=== PATIENT | male | born 1960 | race Caucasian/White ===

== ENCOUNTER 2022-04-04 11:11 | Observation (INO) ==
[2022-04-04 11:28] VITALS: BMI 25.8
--- NOTE | 2022-04-04 11:45 | DR.GENAD ---
HPI Time Seen Time Seen by Provider: 04/04/22 11:27 PCP Primary Care Physician: MAR HPI Comment HPI Comment: A 61 y/o male presenting with skeletal pain in anterior torso. He has been having dizzy spells and unsteady gait. He states that he had fallen 3 to 4 times in past couple of weeks. He denies SOB or c/p. Complaint/Symptoms Chief Complaint:: PT. C/O FREQUENT FALLS AND DIZZINESS. PT. STATES HE HAS HAD 4 FALLS WITHIN THE LAST 2 WEEKS. PT. C/O RIB PAIN TO RIGHT SIDE AND PAIN TO CHEST WALL. PT. HAS AN UNSTEADY GAIT. PCP'S OFFICE CALLS AND STATES PT. HAS BEEN OUT OF HIS HYDROCODONE FOR A FEW DAYS AND HAS ALSO HAD DECREASED ORAL INTAKE. PT. STATES HE VOMITED PRIOR TO ARRIVAL AT PCP'S OFFICE. COVID-19 Coronavirus risk:travel/contact w/high risk person: No Has patient experienced Coronavirus symptoms: No Nurses notes reviewed Nurses Notes Review: Yes Source History Provided: Patient and Family Member Mode of Arrival Mode of Arrival: Wheelchair Timing Onset of Chief Complaint: 03/21/22 Came on: Gradually Duration Duration: Intermittent PMH PMH Past Medical History: Yes Past Medical History: Anxiety and Hypertension Past Medical History Comment: CHRONIC BACK PAIN Past Surgical History: Yes Surgical History: Other Past Surgical History Comment: BACK, RIGHT SHOULDER Family History History of Family Medical Conditions: Yes Family Medical History: Hypertension Social History Does patient currently use any type of tobacco product: No Have you used tobacco products in the last 12 months: No Type of Tobacco Use: None Does any household member use tobacco: No Alcohol Use: DAILY Do you use any recreational Drugs:: No Lives With: Alone Lives Where: Home Travel Risk Coronavirus risk:travel/contact w/high risk person: No Has patient experienced Coronavirus symptoms: No Infectious screening In the last 2 months have you had wt loss of >10#?: NO Have you had fever, night sweats or hemotysis?: No Have you traveled outside the country in the last 6 months?: No Isolation: Standard ROS Review of Systems Constitutional: See HPI and Other (falls) Eyes: No Symptoms Reported ENTM: No Symptoms Reported Respiratoy: No Symptoms Reported Cardiovascular: No Symptoms Reported Gastrointestinal/Abdominal: No Symptoms Reported Genitourinary: No Symptoms Reported Neurological: No Symptoms Reported Musculoskeletal: Chest wall Integumentary: No Symptoms Reported Hematologic/Lymphatic: No Symptoms Reported Endocrine: No Symptoms Reported Psychiatric: No Symptoms Reported PE Vital Signs Vitals: Temperature 97.9 F Pulse Rate 111 Respiratory Rate 18 Blood Pressure 152/83 O2 Sat by Pulse Oximetry 98 General Limitations: No Limitations General Appearance: Alert and In No Apparent Distress Head Head Exam: Normal Inspection, Atraumatic and Normocephalic Eyes Eye exam: Normal Appearance and EOMI ENT ENT Exam: Normal Exam, Normal Oropharynx, Normal External Ear Exam, Mucous Membranes Moist and TM's Normal Bilaterally Neck Neck Exam: Normal Inspection, Full ROM and Trachea Midline Chest Chest Inspection: Normal Inspection, Symmetric Chest Wall Rise and Tenderness (mid sternum) Respiratory Respiratory Exam: Normal Lung Sounds Bilat Cardiovascular Cardiovascular Exam: Regular Rate, Normal Rhythm, Normal Heart Sounds, +S1 and +S2 Abdominal Exam Abdominal Exam: Normal Inspection, Normal Bowel Sounds and Soft Extremities Extremities Exam: Normal Inspection and Full ROM Back Back Exam: Normal Inspection and Full ROM Neurologic Neurological Exam: Alert and Oriented X3 Psychiatric Psychiatric Exam: Normal Affect and Normal Mood Skin Skin Exam: Intact and Other (light bluish bruise on Lt. patella.) COURSE Treatment Treatment: The presentation and findings were discussed with Dr. Dumont. Dr. Dumont agrees to pt. being placed in observation status. Reevaluation 1st: Improved 2nd: Resolved Education/Counseling Education/Counseling: Patient, Family, Education and Counseling Educated On: Treatment, Diagnosis, Prognosis and Needs for Follow Up Education Comments: Name: Juleitte SHIPMAN#: [id number]: [id number] : 1960Sex: MLo ROR Labs Reviewed Result Diagrams: 04/04/22 11:46 04/04/22 11:46 Laboratory: WBC 6.0 X10^3/uL (3.6-10.0) 04/04/22 11:46 RBC 4.69 X10^6/uL (4.7-6.0) L 04/04/22 11:46 Hgb 15.8 g/dL (13.5-18.0) 04/04/22 11:46 Hct 46.1 % (42.0-54.0) 04/04/22 11:46 MCV 98.4 fL (80.0-100.0) 04/04/22 11:46 MCH 33.8 pg (27.0-34.0) 04/04/22 11:46 MCHC 34.3 g/dL (33.0-35.0) 04/04/22 11:46 RDW 14.2 % (11.6-16.5) 04/04/22 11:46 Plt Count 224 X10^3/uL (150.0-450.0) 04/04/22 11:46 MPV 7.1 fL (7.4-11.0) L 04/04/22 11:46 Neut % (Auto) 81.7 % (42.0-75.0) H 04/04/22 11:46 Lymph % (Auto) 8.9 % (21.0-51.0) L 04/04/22 11:46 [place] % (Auto) 8.6 % (0.0-13.0) 04/04/22 11:46 Eos % (Auto) 0.0 % (0.9-2.9) L 04/04/22 11:46 Baso % (Auto) 0.8 % (0.2-1.0) 04/04/22 11:46 Neut # (Auto) 4.9 x10^3/uL (2.2-4.8) H 04/04/22 11:46 Lymph # (Auto) 0.5 X10^3/uL (1.3-2.9) L 04/04/22 11:46 [place] # (Auto) 0.5 x10^3/uL (0.3-0.8) 04/04/22 11:46 Eos # (Auto) 0.0 x10^3/uL (0.0-0.2) 04/04/22 11:46 Baso # (Auto) 0.0 X10^3/uL (0.0-0.1) 04/04/22 11:46 Absolute Nucleated RBC 0.1 /100WBC 04/04/22 11:46 Sodium 129 mmol/L (136-145) L 04/04/22 11:46 Corrected Sodium TNP 04/04/22 11:46 Potassium 4.1 mmol/L (3.5-5.1) 04/04/22 11:46 Chloride 90 mmol/L (98-107) L 04/04/22 11:46 Carbon Dioxide 24.3 mmol/L (21-32) 04/04/22 11:46 BUN 6 mg/dL (7-18) L 04/04/22 11:46 Creatinine 1.02 mg/dL (0.70-1.30) 04/04/22 11:46 Est GFR (MDRD) Af Amer > 60 (>60) 04/04/22 11:46 Est GFR (MDRD) Non-Af > 60 (>60) 04/04/22 11:46 Glucose 105 mg/dL (65-99) H 04/04/22 11:46 Calcium 9.7 mg/dL (8.5-10.1) 04/04/22 11:46 Corrected Calcium TNP 04/04/22 11:46 Total Bilirubin 1.30 mg/dL (0.2-1.0) H 04/04/22 11:46 AST 83 Units/L (15-37) H 04/04/22 11:46 ALT 44 Units/L (12-78) 04/04/22 11:46 Alkaline Phosphatase 90 Units/L (46-116) 04/04/22 11:46 Total Protein 8.5 g/dL (6.4-8.2) H 04/04/22 11:46 Albumin 4.5 g/dL (3.4-5.0) 04/04/22 11:46 Globulin 4.0 g/dL (2.5-4.5) 04/04/22 11:46 Albumin/Globulin Ratio 1.1 Ratio (1.1-2.1) 04/04/22 11:46 Opioid Opioid Risk Tool Age (Caden box if 16-45): No History of Preadolescent Sexual Abuse: No Total: 0 Total Score Risk Category: Low Risk Copyright: [facility] predicting aberrant behaviors Diagnosis Discharge Problem: Falls frequently, Hyponatremia, Alcoholism Multiple rib fractures Qualifiers: Encounter type: initial encounter Fracture type: closed Laterality: right Qualified Code(s): S22.41XA - Multiple fractures of ribs, right side, initial encounter for closed fracture Instructions Instructions: Rib Fracture, [id number] Forms: Precautions for COVID19 [facility] Social Distancing ADDITIONAL NOTES Additional Notes Additional Notes: Name: Juliette SHIPMAN#: [id number]: [id number] : 1960Sex: MLocation: ER Order Number(s): [id number](s):CHEST W/O CON Ordering Physician: CARLOS STROUD Primary Care: Carson Freedom Dumont Service Date: 04/04/22 Service Time: 1206 HISTORY Fall, rib pain STUDY CT chest without contrast Technique: Axial noncontrast images with coronal and sagittal reformats. Dose reduction procedures were used with mA/kv adjusted for body size. THIS EXAMINATION IS LIMITED DUE TO THE LACK OF INTRAVENOUS CONTRAST. The examination was performed in this manner at the sole discretion of the ordering caregiver. COMPARISON None FINDINGS Examinat ion of the mediastinum demonstrated no evidence for mediastinal mass, enlarged mediastinal or enlarged hilar adenopathy. Coronary artery calcifications are present. The thoracic aorta is normal in caliber. Evaluation for injury is not possible due to the lack of intravenous contrast. No pleural effusions are identified. No acute traumatic thoracic spine abnormality is identified. The clavicles, sternum, scapulae and left ribs are intact. There are fractures of the right lateral 5th 6th and 7th ribs. Those portions of the upper abdominal organs visualized were within normal limits to the limitations of an unenhanced examination. Examination of the lung bell demonstrated no evidence for pulmonary contusion or pneumothorax. No nodules, infiltrates, or masses are identified. IMPRESSION Limited examination for the reasons noted above Nondisplaced fractures of the right lateral 5th 6th and 7th ribs Lungs clear Electronically signed by: ELDA BLANCO (April 04, 2022 12:32:24) Report Electronically signed: 04/04/22 1234 CC: Carlos Stroud
[2022-04-04 12:01] LABS: BASOPHILS % (AUTO) 0.8 % (0.2-1.0); HEMATOCRIT 46.1 % (42.0-54.0); HEMOGLOBIN 15.8 g/dL (13.5-18.0); LYMPHOCYTES # (AUTO) 0.5 X10^3/uL (1.3-2.9); LYMPHOCYTES % (AUTO) 8.9 % (21.0-51.0); MEAN CORPUSCULAR HEMOGLOBIN 33.8 pg (27.0-34.0); MEAN CORPUSCULAR HGB CONC 34.3 g/dL (33.0-35.0); MEAN CORPUSCULAR VOLUME 98.4 fL (80.0-100.0); MEAN PLATELET VOLUME 7.1 fL (7.4-11.0); MONOCYTES # (AUTO) 0.5 x10^3/uL (0.3-0.8); MONOCYTES % (AUTO) 8.6 % (0.0-13.0); NEUTROPHILS # (AUTO) 4.9 x10^3/uL (2.2-4.8); NEUTROPHILS % (AUTO) 81.7 % (42.0-75.0); RED BLOOD COUNT 4.69 X10^6/uL (4.7-6.0); RED CELL DISTRIBUTION WIDTH 14.2 % (11.6-16.5)
[2022-04-04 12:11] LABS: ALANINE AMINOTRANSFERASE 44 Units/L (12-78); ALBUMIN 4.5 g/dL (3.4-5.0); ALKALINE PHOSPHATASE 90 Units/L (46-116); ASPARTATE AMINO TRANSFERASE 83 Units/L (15-37); BLOOD UREA NITROGEN 6 mg/dL (7-18); CALCIUM 9.7 mg/dL (8.5-10.1); CARBON DIOXIDE 24.3 mmol/L (21-32); CHLORIDE 90 mmol/L (98-107); CREATININE 1.02 mg/dL (0.70-1.30); SODIUM 129 mmol/L (136-145); TOTAL PROTEIN 8.5 g/dL (6.4-8.2); eGFR NON BLACK RACES > 60 (>60)
--- NOTE | 2022-04-04 12:25 | CT ---
HISTORYFall, head injury, dizzinessSTUDYCT head without contrastTechnique: Axial noncontrast images with coronal and sagittal reformats. Dose reduction procedures were used with mA/kv adjusted for body size.COMPARISONNoneFINDINGSThe ventricles, cortical sulci, and other CSF spaces are enlarged consistent with generalized atrophy. There is slight decreased attenuation in the periventricular white matter suggestive of small vessel vascular disease. There are no focal areas of abnormal attenuation to suggest recent or remote CVA, hemorrhage, contusion, mass lesion, or extra-axial fluid collection. The visualized sinuses are clear. The calvarium is intact.IMPRESSIONNo definite acute intracranial abnormalityGeneralized atrophyMild small vessel diseaseElectronically signed by: ELDA BLANCO (April 04, 2022 12:22:33)
--- NOTE | 2022-04-04 12:34 | CT ---
HISTORYFall, rib painSTUDYCT chest without contrastTechnique: Axial noncontrast images with coronal and sagittal reformats. Dose reduction procedures were used with mA/kv adjusted for body size. THIS EXAMINATION IS LIMITED DUE TO THE LACK OF INTRAVENOUS CONTRAST. The examination was performed in this manner at the sole discretion of the ordering caregiver.COMPARISONNoneFINDINGSExaminat ion of the mediastinum demonstrated no evidence for mediastinal mass, enlarged mediastinal or enlarged hilar adenopathy. Coronary artery calcifications are present. The thoracic aorta is normal in caliber. Evaluation for injury is not possible due to the lack of intravenous contrast. No pleural effusions are identified. No acute traumatic thoracic spine abnormality is identified. The clavicles, sternum, scapulae and left ribs are intact. There are fractures of the right lateral 5th 6th and 7th ribs. Those portions of the upper abdominal organs visualized were within normal limits to the limitations of an unenhanced examination. Examination of the lung bell demonstrated no evidence for pulmonary contusion or pneumothorax. No nodules, infiltrates, or masses are identified.IMPRESSIONLimited examination for the reasons noted aboveNondisplaced fractures of the right lateral 5th 6th and 7th ribsLungs clearElectronically signed by: ELDA BLANCO (April 04, 2022 12:32:24)
[2022-04-04] MEDS ORDERED: KAOPECTATE (NEW FORMULA) PO PRN (13:20)
[2022-04-04] MEDS ORDERED: MOTRIN TAB 800 MG PO PRN (13:20)
[2022-04-04] MEDS ORDERED: MILK OF MAGNESIA PO PRN (13:20)
[2022-04-04] MEDS ORDERED: LIBRIUM PO PRN (13:20)
[2022-04-04] MEDS ORDERED: MORPHINE SULFATE INJ 2 MG INJ IVP ONE (13:21)
[2022-04-04] MEDS ORDERED: NS 1,000 ML IV 1,000 ML ONE (13:22)
[2022-04-04] MEDS ORDERED: MORPHINE SULFATE INJ 2 MG INJ ONE (13:22)
[2022-04-04] MEDS ORDERED: ZOFRAN INJ 4 MG VIAL ONE (13:28)
[2022-04-04] MEDS: NS 1,000 ML IV 1,000 ML IV SCH ×3 (13:28→23:51)
[2022-04-04] MEDS ORDERED: ZOFRAN INJ 4 MG VIAL IVP ONE (13:47)
[2022-04-04 13:51] LABS: BILIRUBIN,URINE 1+ (NEGATIVE); BLOOD/HEMOGLOBIN,URINE 1+ (NEGATIVE); GLUCOSE, URINE NEGATIVE (NEGATIVE); KETONES,URINE 3+ (NEGATIVE); LEUKOCYTE ESTERASE ,URINE 1+ (NEGATIVE); NITRITES,URINE NEGATIVE (NEGATIVE); PROTEIN,URINE 2+ (NEGATIVE); UROBILINOGEN,URINE 2+ (NORMAL)
[2022-04-04 13:52] LABS: APPEARANCE,URINE CLEAR (CLEAR); COLOR,URINE DARK YELLOW (YELLOW)
[2022-04-04 13:54] LABS: BACTERIA,URINE TRACE /HPF (NEGATIVE); SQUAMOUS EPITHELIAL CELL,UR RARE /HPF (NEGATIVE)
[2022-04-04] MEDS ORDERED: NORCO 10/325 TAB PO PRN (13:59)
[2022-04-04] MEDS: NS 1,000 ML IV 1,000 ML with MAGNESIUM SULFATE 50% INJ VIAL 1 G, MVI INJ (ADULT) 10 ML IV SCH ×3 (14:00)
[2022-04-04] MEDS: TORADOL 30 MG VIAL IVP SCH ×2 (15:35→21:06)
[2022-04-04] MEDS: PHENOBARBITAL TAB 30 MG (32.4MG) PO SCH ×2 (17:21→21:07)
[2022-04-04] MEDS: AMBIEN PO SCH (21:08)
[2022-04-04] MEDS: LOPRESSOR TAB 25 MG PO SCH (21:08)
[2022-04-04] MEDS: MAALOX or MYLANTA PO PRN (21:21)
[2022-04-05] MEDS: TORADOL 30 MG VIAL IVP SCH ×4 (03:53→20:50)
[2022-04-05] MEDS: NS 1,000 ML IV 1,000 ML IV SCH ×3 (04:00→17:12)
[2022-04-05 06:10] LABS: BASOPHILS % (AUTO) 0.6 % (0.2-1.0); LYMPHOCYTES # (AUTO) 0.6 X10^3/uL (1.3-2.9); MEAN CORPUSCULAR VOLUME 98.3 fL (80.0-100.0); MEAN PLATELET VOLUME 7.3 fL (7.4-11.0); MONOCYTES # (AUTO) 0.6 x10^3/uL (0.3-0.8); NEUTROPHILS % (AUTO) 67.7 % (42.0-75.0)
[2022-04-05 06:23] LABS: EOSINOPHILS % (AUTO) 1.1 % (0.9-2.9); HEMOGLOBIN 13.7 g/dL (13.5-18.0); LYMPHOCYTES % (AUTO) 14.9 % (21.0-51.0); MEAN CORPUSCULAR HEMOGLOBIN 34.4 pg (27.0-34.0); MONOCYTES % (AUTO) 15.7 % (0.0-13.0); NEUTROPHILS # (AUTO) 2.7 x10^3/uL (2.2-4.8); RED BLOOD COUNT 3.97 X10^6/uL (4.7-6.0); WHITE BLOOD COUNT 3.9 X10^3/uL (3.6-10.0)
[2022-04-05 06:29] LABS: ALANINE AMINOTRANSFERASE 29 Units/L (12-78); ALBUMIN 3.6 g/dL (3.4-5.0); ALKALINE PHOSPHATASE 76 Units/L (46-116); ASPARTATE AMINO TRANSFERASE 43 Units/L (15-37); BLOOD UREA NITROGEN 9 mg/dL (7-18); CALCIUM 8.5 mg/dL (8.5-10.1); CARBON DIOXIDE 27.6 mmol/L (21-32); CHLORIDE 93 mmol/L (98-107); COR NA(FOR HYPERGLY) 130 mmol/L (136-145); SODIUM 130 mmol/L (136-145); TOTAL PROTEIN 6.7 g/dL (6.4-8.2); eGFR NON BLACK RACES > 60 (>60)
[2022-04-05] MEDS ORDERED: K-RIDER 10 MEQ/NS 100 ML 10 MEQ/100 ML BAG IV PRN (07:07)
[2022-04-05] MEDS ORDERED: POTASSIUM CHLORIDE LIQ 20 MEQ UDC PO PRN (07:07)
[2022-04-05] MEDS ORDERED: POTASSIUM CHL 60 MEQ/NS 0.45% 500 ML IV PRN (07:07)
[2022-04-05] MEDS ORDERED: MICRO K EXTEN CAP 10 MEQ PO PRN (07:07)
[2022-04-05] MEDS ORDERED: KLOR-CON PO PRN (07:07)
[2022-04-05] MEDS ORDERED: POTASSIUM CHL 40 MEQ/NS 0.45% 500 ML IV PRN (07:07)
[2022-04-05] MEDS ORDERED: K-DUR TAB 20 MEQ PO PRN (07:07)
--- NOTE | 2022-04-05 07:20 | RAD ---
HISTORYSOBSTUDYCHEST, 1 VIEWCOMPARISONCT chest from 04/04/2022.TECHNIQUEAP view of the chestFINDINGSThe cardiac and mediastinal contours are within normal limits. The lungs are clear without focal consolidation or segmental collapse. No pleural effusion or pneumothorax. Right 5th through 7th rib fractures not well visualized.IMPRESSIONNo acute pulmonary process.Electronically signed by: Domingo Gill (April 05, 2022 07:18:35)
[2022-04-05] MEDS: MOBIC TAB 15 MG PO SCH (08:16)
[2022-04-05] MEDS: LOPRESSOR TAB 25 MG PO SCH ×2 (08:16→20:51)
[2022-04-05] MEDS: COZAAR PO SCH (08:16)
[2022-04-05] MEDS: PHENOBARBITAL TAB 30 MG (32.4MG) PO SCH ×4 (08:17→20:51)
[2022-04-05] MEDS: PriLOSEC PO SCH (08:17)
[2022-04-05] MEDS: THIAMINE HCL INJ IVP SCH (08:25)
[2022-04-05] MEDS ORDERED: MAGNESIUM SULFATE 1 GRAM/100 mL PREMIX 1 G/100 ML BAG IV ONE (08:33)
--- NOTE | 2022-04-05 09:45 | DR.H&P ---
H&P - History & Physical for Day of: H&P Date: 04/04/22 - Chief Complaint Chief Complaint: DIZZINESS, WEAKNESS, FALLS, RIB PAIN - History of Present Illness History of Present Illness: IS A 61 YEAR OLD PATIENT OF OURS. HE PRESENTED TO THE ER WITH COMPLAINTS OF RIGHT SIDE RIB PAIN, CHEST WALL PAIN, DIZZINESS, AND FREQUENT FALLS. PATIENT REPORTS THAT RIP PAIN STARTED AFTER FALLING TODAY. HE REPORTS HAVING 4 FALLS IN THE PAST TWO WEEKS. HE DENIES SHORTNESS OF BREATH. HE ADMITS TO DECREASED ORAL INTAKE AND VOMITING PRIOR TO ARRIVAL. PMH INCLUDES ANXIETY, HTN, CHRONIC BACK PAIN. EXAMINATION REVEALED TENDERNESS TO RIGHT SIDE LUNGS. HE DOES ADMIT TO DAILY ALCOHOL USE. ON ARRIVAL TO THE ER, VITALS WERE 97.9-126-18-99%-169/95. LABS WERE OBTAINED. WBC 6.0, RBC 4.69, HGB 15.8, HCT 46.1, SODIUM 129, POTASSIUM 4.1, CHLORIDE 90, BUN 6, CREATININE 1.02, GLUCOSE 105, CALCIUM 9.7, TOTAL BILI 1.30, AST 83, ALT 44, ALK PHOS 90, TOTAL PROTEIN 8.5. URINALYSIS REVEALED: WBC 3-5, RBC 3-5, BACTERIA TRACE, LEUKOCYTES 1+. WE WILL SET UP A URINE CULTURE. UDS POSITIVE FOR OPIATES AND BENZODIAZEPINES. HE DOES TAKE HYDROCODONE. COVID-[address] WAS OBTAINED AND REVEALED: No definite acute intracranial abnormality. Generalized atrophy. Mild small vessel disease. EKG REVEALED: SINUS TACHYCARDIA WITH HR 111. CHEST CT WAS OBTAINED AND REVEALED: Nondisplaced fractures of the right lateral 5th 6th and 7th ribs. Lungs clear. IN THE ER, HE WAS GIVEN MORPHINE 2MG IV X 1 DOSE AND ZOFRAN 4MG IV X 1 DOSE. HE WAS ADMITTED FOR FURTHER EVALUATION AND TREATMENT OF HYPONATREMIA, MULTIPLE RIB TX, AND FREQUENT FALLS. HE WAS STARTED ON A BANANA BAG, THE POTASSIUM AND MAGNESIUM PROTOCOL, THIAMINE 100MG IV DAILY, PHENOBARBITAL 30MG PO QID, MILK OF MAGNESIA 60ML PO DAILY PRN, TORADOL 30MG IV Q6H, MOTRIN 800MG PO Q8H PRN, LIBRIUM 25MG PO Q6H PRN, MAALOX 30ML PO Q4H PRN, AND HIS HOME MEDICATIONS WERE RESUMED. OTHERWISE ,WE PLAN TO FOLLOW-UP WITH AM LABS AND CONTINUE TO MONITOR. TIME SPENT ON CLINICAL ASSESSMENT, REVIEWING LABS AND IMAGING, DECISION MAKING, AND DOCUMENTATION GREATER THAN 75 MINUTES. - Past Medical History Past Medical History: Hypertension, Anxiety Additional Medical History: CHRONIC LOW BACK PAIN - Past Surgical History Surgical History: Other Additional Surgical History: BACK AND RIGHT SHOULDER SURGERY - Family History Family Medical History: Hypertension - Social History Does patient currently use any type of tobacco product: No Have you used tobacco products in the last 12 months: No Type of Tobacco Use: None Does any household member use tobacco: No Alcohol Use: DAILY Drug Use: None - Medications Home Medications: codeine Allergy (Verified 04/04/22 11:28) CONTINUE taking the following medications hydrocodone-acetaminophen 1 tab PO TID PRN 04/04/22 [History] losartan 50 mg PO DAILY 04/04/22 [History] meloxicam 15 mg PO DAILY 04/04/22 [History] metoprolol tartrate 25 mg PO BID 04/04/22 [History] nystatin 1 applic TOPICAL BID 04/04/22 [History] omeprazole 20 mg PO DAILY 04/04/22 [History] - Review of Systems Constitutional: Weakness Eyes: No Symptoms Reported ENT: No Symptoms Reported Respiratory: No Symptoms Reported Cardiovascular: Light Headedness Gastrointestinal: No Symptoms Reported Genitourinary: No Symptoms Reported Musculoskeletal: See HPI (RIGHT SIDE RIB PAIN ) Skin: No Symptoms Reported Neurological: Weakness - Physical Exam Vital Signs: Temperature 98.4 F Pulse Rate [Bilateral Radial] 78 Pulse Rate 122 Respiratory Rate 18 Blood Pressure [Right Arm] 155/87 Blood Pressure 148/99 O2 Sat by Pulse Oximetry 97 Oriented: Normal Eyes: Normal Ear: Normal Nose: Normal Throat: Normal Respiratory: Diminished Throughout Cardiovascular: Tachycardia : Normal Auscultation: Bowel Sounds: Normal Palpation: Normal Tenderness: Normal Skin: Normal Musculoskeletal: Right (RIGHT SIDE RIBS ), Tender Psychiatric: Normal Mood Description: Calm Affect: Normal Speech Pattern: Clear - Assessment/Plan (1) Hyponatremia Status: Acute Plan: ADMIT, BANANA BAG, THE POTASSIUM AND MAGNESIUM PROTOCOL, THIAMINE 100MG IV DAILY, PHENOBARBITAL 30MG PO QID, MILK OF MAGNESIA 60ML PO DAILY PRN, TORADOL 30MG IV Q6H, MOTRIN 800MG PO Q8H PRN, LIBRIUM 25MG PO Q6H PRN, MAALOX 30ML PO Q4H PRN, AND HIS HOME MEDICATIONS WERE RESUMED (2) Multiple rib fractures Qualifiers: Encounter type: initial encounter Fracture type: closed Laterality: right Qualified Code(s): S22.41XA - Multiple fractures of ribs, right side, initial encounter for closed fracture Status: Acute (3) Falls frequently Status: Acute (4) Alcoholism Status: Acute - Allergies Allergies/Adverse Reactions: Allergies Allergy/AdvReac Type Severity Reaction Status Date / Time codeine Allergy Verified 04/04/22 11:28
[2022-04-05 09:52] LABS: CKMB % 0.3 % (<4); CREATINE KINASE MB 1.9 ng/mL (0-4.0)
[2022-04-05] MEDS: MAALOX or MYLANTA PO PRN ×2 (10:29→20:50)
[2022-04-05] MEDS: NS 1,000 ML IV 1,000 ML with MAGNESIUM SULFATE 50% INJ VIAL 1 G, MVI INJ (ADULT) 10 ML IV SCH ×3 (13:59)
[2022-04-05] MEDS: AMBIEN PO SCH (20:50)
[2022-04-06] MEDS: TORADOL 30 MG VIAL IVP SCH ×2 (03:02→08:16)
[2022-04-06 06:15] LABS: BASOPHILS % (AUTO) 0.7 % (0.2-1.0); EOSINOPHILS % (AUTO) 1.6 % (0.9-2.9); HEMATOCRIT 34.9 % (42.0-54.0); LYMPHOCYTES # (AUTO) 0.6 X10^3/uL (1.3-2.9); LYMPHOCYTES % (AUTO) 21.3 % (21.0-51.0); MEAN CORPUSCULAR HEMOGLOBIN 33.8 pg (27.0-34.0); MEAN CORPUSCULAR HGB CONC 34.3 g/dL (33.0-35.0); MEAN CORPUSCULAR VOLUME 98.6 fL (80.0-100.0); MEAN PLATELET VOLUME 7.3 fL (7.4-11.0); MONOCYTES # (AUTO) 0.4 x10^3/uL (0.3-0.8); MONOCYTES % (AUTO) 13.5 % (0.0-13.0); NEUTROPHILS # (AUTO) 1.9 x10^3/uL (2.2-4.8); NEUTROPHILS % (AUTO) 62.9 % (42.0-75.0); RED BLOOD COUNT 3.54 X10^6/uL (4.7-6.0); RED CELL DISTRIBUTION WIDTH 13.8 % (11.6-16.5)
[2022-04-06] MEDS: MAALOX or MYLANTA PO PRN (06:17)
[2022-04-06 06:25] LABS: ALANINE AMINOTRANSFERASE 23 Units/L (12-78); ALBUMIN 3.2 g/dL (3.4-5.0); ALKALINE PHOSPHATASE 63 Units/L (46-116); ASPARTATE AMINO TRANSFERASE 30 Units/L (15-37); BLOOD UREA NITROGEN 4 mg/dL (7-18); CHLORIDE 99 mmol/L (98-107); COR CA(FOR HYPOALB) 8.6 mg/dL (8.5-10.1); CREATINE KINASE 305 Units/L (39-308); CREATININE 0.81 mg/dL (0.70-1.30); MAGNESIUM 1.8 mg/dL (1.7-2.9); SODIUM 133 mmol/L (136-145); eGFR NON BLACK RACES > 60 (>60)
[2022-04-06] MEDS: NS 1,000 ML IV 1,000 ML IV SCH (07:08)
--- NOTE | 2022-04-06 07:09 | RAD ---
HISTORYShortness of breathSTUDYChest AP [id number]/05/2022FINDINGSHear t size is normal. Jackelyn are normal. Lungs are hypoinflated but clear. No pleural effusion is identified. Bony thorax is unremarkable.IMPRESSIONLungs hypoinflated but clearElectronically signed by: ELDA BLANCO (April 06, 2022 07:08:18)
[2022-04-06] MEDS: PriLOSEC PO SCH (08:07)
[2022-04-06] MEDS: COZAAR PO SCH (08:07)
[2022-04-06] MEDS: PHENOBARBITAL TAB 30 MG (32.4MG) PO SCH (08:07)
[2022-04-06] MEDS: THIAMINE HCL INJ IVP SCH (08:07)
[2022-04-06] MEDS: LOPRESSOR TAB 25 MG PO SCH (08:07)
[2022-04-06] MEDS: MOBIC TAB 15 MG PO SCH (08:07)
[2022-04-06 08:17] VITALS: BP 142/82
== END 2022-04-06 10:20 | disposition home or self-care (01) ==
LOC: MED/SURG 11:11 → ER 11:11 → MED/SURG 13:51
PROVIDERS: ADMIT Internal Medicine; ATTEND Internal Medicine

== ENCOUNTER 2022-11-07 11:28 | Inpatient (IN) ==
[2022-11-07] MEDS ORDERED: POTASSIUM CHLORIDE LIQ 20 MEQ UDC PO PRN (13:53)
[2022-11-07] MEDS ORDERED: POTASSIUM CHL 40 MEQ/NS 0.45% 500 ML IV PRN (13:53)
[2022-11-07] MEDS ORDERED: KLOR-CON PO PRN (13:53)
[2022-11-07] MEDS ORDERED: NS 500 ML IV 500 ML IV ONE (13:53)
[2022-11-07] MEDS ORDERED: MICRO K EXTEN CAP 10 MEQ PO PRN (13:53)
[2022-11-07] MEDS ORDERED: POTASSIUM CHL 60 MEQ/NS 0.45% 500 ML IV PRN (13:53)
[2022-11-07 14:11] LABS: ALANINE AMINOTRANSFERASE 76 Units/L (12-78); ALBUMIN 4.4 g/dL (3.4-5.0); ALKALINE PHOSPHATASE 69 Units/L (46-116); AMYLASE 125 Units/L (25-115); ASPARTATE AMINO TRANSFERASE 46 Units/L (15-37); BLOOD UREA NITROGEN 10 mg/dL (7-18); CALCIUM 9.2 mg/dL (8.5-10.1); CARBON DIOXIDE 29.6 mmol/L (21-32); CHLORIDE 82 mmol/L (98-107); COR NA(FOR HYPERGLY) 122 mmol/L (136-145); CREATININE 1.09 mg/dL (0.70-1.30); eGFR NON BLACK RACES > 60 (>60)
[2022-11-07 14:13] LABS: LIPASE 1550 Units/L (73-393); SODIUM 122 mmol/L (136-145)
[2022-11-07 14:15] LABS: AMMONIA 13 umol/L (11-32)
[2022-11-07 14:17] LABS: BASOPHILS # (AUTO) 0.1 X10^3/uL (0.0-0.1); BASOPHILS % (AUTO) 0.9 % (0.2-1.0); EOSINOPHILS % (AUTO) 0.2 % (0.9-2.9); HEMATOCRIT 40.5 % (42.0-54.0); HEMOGLOBIN 14.3 g/dL (13.5-18.0); LYMPHOCYTES # (AUTO) 0.7 X10^3/uL (1.3-2.9); LYMPHOCYTES % (AUTO) 8.8 % (21.0-51.0); MEAN CORPUSCULAR HEMOGLOBIN 35.4 pg (27.0-34.0); MEAN CORPUSCULAR HGB CONC 35.4 g/dL (33.0-35.0); MEAN PLATELET VOLUME 6.1 fL (7.4-11.0); MONOCYTES % (AUTO) 12.2 % (0.0-13.0); NEUTROPHILS # (AUTO) 6.4 x10^3/uL (2.2-4.8); NEUTROPHILS % (AUTO) 77.9 % (42.0-75.0); RED BLOOD COUNT 4.06 X10^6/uL (4.7-6.0); RED CELL DISTRIBUTION WIDTH 15.8 % (11.6-16.5); WHITE BLOOD COUNT 8.2 X10^3/uL (3.6-10.0)
[2022-11-07] MEDS ORDERED: NS 1,000 ML IV 1,000 ML IV NR (15:00)
--- NOTE | 2022-11-07 15:28 | CT ---
HISTORYAMSSTUDYBRAIN W/O CONCOMPARISONReport only from April 04, 2022TECHNIQUEAxial non-contrast images of the head were obtained with coronal and sagittal reformats provided.Radiation dose: 1624.34 mGy-cm total DLPFINDINGSNo abnormal areas of acute attenuation in the brain parenchyma.Chaidez-white differentiation remains intact.No intracranial, extra-axial, fluid collection.No hemorrhage.Periventricular chronic microvascular disease.No mass, mass effect or midline shift.Age related brain parenchymal global atrophy.No ventriculomegaly.No acute fracture.Sinuses are well aerated.Mastoid air cells are well aerated.Globes and intra-orbital contents are unremarkable.IMPRESSIONNo acute intracranial abnormality identified.Electronically signed by: Alonso Swift (Nov 07, 2022 15:26:29)
[2022-11-07 18:04] LABS: BILIRUBIN,URINE NEGATIVE (NEGATIVE); BLOOD/HEMOGLOBIN,URINE NEGATIVE (NEGATIVE); GLUCOSE, URINE NEGATIVE (NEGATIVE); KETONES,URINE NEGATIVE (NEGATIVE); LEUKOCYTE ESTERASE ,URINE NEGATIVE (NEGATIVE); NITRITES,URINE NEGATIVE (NEGATIVE); PH,URINE 6.5 (5.0 - 8.0); PROTEIN,URINE NEGATIVE (NEGATIVE); UROBILINOGEN,URINE 1+ (NORMAL)
[2022-11-07 18:16] LABS: APPEARANCE,URINE CLEAR (CLEAR); BACTERIA,URINE TRACE /HPF (NEGATIVE); COLOR,URINE PALE YELLOW (YELLOW); RBC,URINE NONE SEEN /HPF (0-3); SQUAMOUS EPITHELIAL CELL,UR NEGATIVE /HPF (NEGATIVE)
[2022-11-07] MEDS: NS + KCL 20 MEQ/L 1,000 ML IV SCH (21:00)
[2022-11-07] MEDS: MAGNESIUM SULFATE 1 GRAM/100 mL PREMIX 1 G/100 ML BAG IV PRN ×2 (21:45→22:36)
[2022-11-08] MEDS: K-RIDER 10 MEQ/NS 100 ML 10 MEQ/100 ML BAG IV PRN ×6 (01:04→07:12)
[2022-11-08 06:15] LABS: BASOPHILS % (AUTO) 0.3 % (0.2-1.0); EOSINOPHILS % (AUTO) 0.5 % (0.9-2.9); HEMATOCRIT 35.2 % (42.0-54.0); HEMOGLOBIN 12.5 g/dL (13.5-18.0); LYMPHOCYTES # (AUTO) 0.6 X10^3/uL (1.3-2.9); MEAN CORPUSCULAR HEMOGLOBIN 35.7 pg (27.0-34.0); MEAN CORPUSCULAR HGB CONC 35.7 g/dL (33.0-35.0); MEAN CORPUSCULAR VOLUME 100.1 fL (80.0-100.0); MEAN PLATELET VOLUME 6.2 fL (7.4-11.0); MONOCYTES # (AUTO) 0.6 x10^3/uL (0.3-0.8); MONOCYTES % (AUTO) 12.1 % (0.0-13.0); NEUTROPHILS # (AUTO) 3.5 x10^3/uL (2.2-4.8); NEUTROPHILS % (AUTO) 75.1 % (42.0-75.0); RED BLOOD COUNT 3.51 X10^6/uL (4.7-6.0); RED CELL DISTRIBUTION WIDTH 15.6 % (11.6-16.5); WHITE BLOOD COUNT 4.7 X10^3/uL (3.6-10.0)
[2022-11-08 06:25] LABS: ALANINE AMINOTRANSFERASE 59 Units/L (12-78); ALBUMIN 3.4 g/dL (3.4-5.0); ALKALINE PHOSPHATASE 55 Units/L (46-116); AMYLASE 112 Units/L (25-115); ASPARTATE AMINO TRANSFERASE 44 Units/L (15-37); BLOOD UREA NITROGEN 6 mg/dL (7-18); CALCIUM 8.4 mg/dL (8.5-10.1); CARBON DIOXIDE 26.8 mmol/L (21-32); CHLORIDE 91 mmol/L (98-107); CREATININE 0.78 mg/dL (0.70-1.30); SODIUM 126 mmol/L (136-145); TOTAL PROTEIN 6.5 g/dL (6.4-8.2); eGFR NON BLACK RACES > 60 (>60)
[2022-11-08 06:35] LABS: LIPASE 1470 Units/L (73-393)
[2022-11-08] MEDS ORDERED: VALIUM INJ IM PRN (09:45)
[2022-11-08] MEDS: NS + KCL 20 MEQ/L 1,000 ML IV SCH (09:48)
[2022-11-08] MEDS: NS + KCL 20 MEQ/L 1,000 ML with MAGNESIUM SULFATE 50% INJ VIAL 1 G, MVI INJ (ADULT) 10 ML IV SCH ×6 (10:57→23:04)
[2022-11-08] MEDS: PHENOBARBITAL SODIUM INJ 65 MG VIAL IM SCH ×3 (10:58→21:25)
--- NOTE | 2022-11-08 12:15 | DR.H&P ---
H&P - History & Physical for Day of: H&P Date: 11/07/22 - Chief Complaint Chief Complaint: AMS, WEAKNESS, DECREASED ORAL INTAKE - History of Present Illness History of Present Illness: IS A 62 YEAR OLD PATIENT OF OURS. HE WAS A DIRECT ADMISSION TO THE HOSPITAL DUE TO ALTERED MENTAL STATUS, DECREASED ORAL INTAKE, GENERALIZED WEAKNESS. PATIENTS BROTHER REPORTS THAT HE FOUND HIM LYING IN THE FLOOR ON 11/07/22 AND IT LOOKED LIKE HE HAD BEEN THERE FOR A FEW DAYS. HE REPORTS THAT THE PATIENT RESPONDED TO HIM VERBALLY, BUT WAS STARING OFF INTO SPACE AND DID NOT FOLLOW COMMANDS. IN THE OFFICE, PATIENT WAS LETHARGIC AND WAS UNABLE TO FOLLOW COMMANDS. HIS PMH INCLUDES: HTN, GERD, CHRONIC DIARRHEA, ANXIETY, AND ALCOHOL ABUSE. ON ADMISSION TO THE HOSPITAL, VITALS WERE: 97.8-92-20-98%-148/72. LABS WERE OBTAINED. WBC 8.2, RBC 4.06, HGB 14.3, HCT 40.5, PLT COUNT 246, SODIUM 122, POTASSIUM 2.1, CHLORIDE 82, CARBON DIOXIDE 29.6, BUN 10, CREATININE 1.09, GLUCOSE 118, CALCIUM 9.2, MAGNESIUM 1.6, AST 46, ALT 76, ALK PHOS 69, AMMONIA 13, TOTAL PROTEIN 8.0, ALBUMIN 4.4, AMYLASE 125, LIPASE 1550. URINALYSIS WAS OBTAINED AND WAS UNREMARKABLE. URINE DRUG SCREEN WAS NEGATIVE. A BRAIN CT WITHOUT CONTRAST WAS OBTAINED. IT REVEALED: NO ACUTE I NTRACRANIAL ABNORMALITY IDENTIFIED. HE WAS STARTED ON NORMAL SALINE WITH POTASSIUM CHLORIDE, MAGNESIUM, AND MULTIVITAMINS AT 100 ML/HR, THE POTASSIUM AND MAGNESIUM PROTOCOLS, PHENOBARBITAL 32.5MG IM TID, VALIUM 5MG IM Q8H PRN. OTHERWISE, WE WILL FOLLOW-UP WITH AM LABS AND CONTINUE TO MONITOR. TIME SPENT ON CLINICAL ASSESSMENT, REVIWING LABS AND IMAGING, DECISION MAKING, AND DOCUMENTATION GREATER THAN 75 MINUTES. - Past Medical History Past Medical History: Hypertension, Anxiety Additional Medical History: CHRONIC LOW BACK PAIN - Past Surgical History Surgical History: Cholecystectomy, Other Additional Surgical History: BACK AND RIGHT SHOULDER SURGERY - Family History Family Medical History: Coronary Artery Disease, Hypertension - Social History Does any household member use tobacco: No Alcohol Use: DAILY Drug Use: Prescription Drugs - Medications Home Medications: codeine Allergy (Verified 04/04/22 11:28) - Review of Systems Constitutional: Weakness Eyes: No Symptoms Reported ENT: No Symptoms Reported Respiratory: No Symptoms Reported Cardiovascular: No Symptoms Reported Gastrointestinal: No Symptoms Reported Genitourinary: No Symptoms Reported Musculoskeletal: No Symptoms Reported Skin: No Symptoms Reported Neurological: See HPI, Weakness, Change in Speech, Other (AMS ) - Physical Exam Vital Signs: Temperature 98.6 F Pulse Rate [Right Brachial] 89 Respiratory Rate 20 Blood Pressure [Right Arm] 139/87 O2 Sat by Pulse Oximetry 95 Oriented: Unable to test Eyes: Normal Ear: Normal Nose: Normal Throat: Normal Respiratory: Diminished Throughout Cardiovascular: Normal : Normal Auscultation: Bowel Sounds: Normal Palpation: Normal Tenderness: Normal Skin: Decreased Turgur Musculoskeletal: Instability Psychiatric: Normal Mood Description: Calm Affect: Flat Speech Pattern: Unclear, Inappropriate, Slurred - Assessment/Plan (1) Pancreatitis, alcoholic, acute Qualifiers: Acute pancreatitis complication: unspecified Qualified Code(s): K85.20 - Alcohol induced acute pancreatitis without necrosis or infection Status: Acute Plan: ADMIT, NORMAL SALINE WITH POTASSIUM CHLORIDE, MAGNESIUM, AND MULTIVITAMINS AT 100 ML/HR, THE POTASSIUM AND MAGNESIUM PROTOCOLS, PHENOBARBITAL 32.5MG IM TID, VALIUM 5MG IM Q8H PRN. (2) Hyponatremia Status: Acute (3) Hypomagnesemia Status: Acute (4) Hypokalemia Status: Acute (5) AMS (altered mental status) Qualifiers: Altered mental status type: unspecified Qualified Code(s): R41.82 - Altered mental status, unspecified Status: Acute (6) Falls frequently Status: Acute (7) Alcoholism Status: Chronic (8) Hypertension Qualifiers: Hypertension type: primary hypertension Qualified Code(s): I10 - Essential (primary) hypertension Status: Chronic - Allergies Allergies/Adverse Reactions: Allergies Allergy/AdvReac Type Severity Reaction Status Date / Time codeine Allergy Verified 04/04/22 11:28
[2022-11-08] MEDS: K-DUR TAB 20 MEQ PO PRN (14:50)
[2022-11-08] MEDS ORDERED: BUTT CREAM (COMPOUND) ONE (17:32)
[2022-11-08] MEDS: BUTT CREAM (COMPOUND) TOP PRN (18:11)
[2022-11-09 05:16] LABS: BASOPHILS % (AUTO) 0.6 % (0.2-1.0); EOSINOPHILS % (AUTO) 0.8 % (0.9-2.9); HEMATOCRIT 34.5 % (42.0-54.0); HEMOGLOBIN 11.9 g/dL (13.5-18.0); LYMPHOCYTES # (AUTO) 0.7 X10^3/uL (1.3-2.9); LYMPHOCYTES % (AUTO) 15.8 % (21.0-51.0); MEAN CORPUSCULAR HEMOGLOBIN 35.1 pg (27.0-34.0); MEAN CORPUSCULAR HGB CONC 34.6 g/dL (33.0-35.0); MEAN CORPUSCULAR VOLUME 101.4 fL (80.0-100.0); MEAN PLATELET VOLUME 6.2 fL (7.4-11.0); MONOCYTES # (AUTO) 0.6 x10^3/uL (0.3-0.8); MONOCYTES % (AUTO) 13.3 % (0.0-13.0); NEUTROPHILS # (AUTO) 3.1 x10^3/uL (2.2-4.8); NEUTROPHILS % (AUTO) 69.5 % (42.0-75.0); WHITE BLOOD COUNT 4.4 X10^3/uL (3.6-10.0)
[2022-11-09 05:30] LABS: ALANINE AMINOTRANSFERASE 67 Units/L (12-78); ALBUMIN 3.3 g/dL (3.4-5.0); ALKALINE PHOSPHATASE 69 Units/L (46-116); ASPARTATE AMINO TRANSFERASE 39 Units/L (15-37); BLOOD UREA NITROGEN 8 mg/dL (7-18); CALCIUM 7.9 mg/dL (8.5-10.1); CARBON DIOXIDE 27.5 mmol/L (21-32); CHLORIDE 95 mmol/L (98-107); COR CA(FOR HYPOALB) 8.5 mg/dL (8.5-10.1); CREATININE 0.76 mg/dL (0.70-1.30); MAGNESIUM 1.7 mg/dL (2.0-2.9); SODIUM 131 mmol/L (136-145); TOTAL PROTEIN 6.3 g/dL (6.4-8.2); eGFR NON BLACK RACES > 60 (>60)
[2022-11-09] MEDS: PHENOBARBITAL SODIUM INJ 65 MG VIAL IM SCH ×3 (05:30→21:00)
[2022-11-09] MEDS: MAGNESIUM SULFATE 1 GRAM/100 mL PREMIX 1 G/100 ML BAG IV PRN ×2 (08:30→09:20)
[2022-11-09] MEDS: K-DUR TAB 20 MEQ PO PRN ×2 (08:31→17:28)
[2022-11-09 08:56] LABS: AMYLASE 128 Units/L (25-115); LIPASE > 1500 Units/L (73-393)
[2022-11-09] MEDS: BUTT CREAM (COMPOUND) TOP PRN (09:20)
[2022-11-09] MEDS: NS + KCL 20 MEQ/L 1,000 ML with MAGNESIUM SULFATE 50% INJ VIAL 1 G, MVI INJ (ADULT) 10 ML IV SCH ×3 (13:15)
[2022-11-09] MEDS: NYSTATIN CREAM TOP SCH ×2 (13:15→20:57)
--- NOTE | 2022-11-09 13:59 | RAD ---
HISTORYLeft-sided rib injurySTUDYLeft ribs with PA chest 6 viewsCOMPARISONChest 04/05/2022FINDINGSPA chest: No acute findings.Left ribs: There are cortical contour deformities of left ribs 5, 6 and 7. The deformities appear nonacute and may be related to remote injury. No recent rib fracture, bone destruction or other acute process is noted.IMPRESSIONProbably heel/nonacute left rib fractures. No recent rib injury is identified.Electronically signed by: LITZY VALDEZ (Nov 09, 2022 13:58:02)
[2022-11-09 18:53] VITALS: BMI 27.9
[2022-11-10] MEDS: NS + KCL 20 MEQ/L 1,000 ML with MAGNESIUM SULFATE 50% INJ VIAL 1 G, MVI INJ (ADULT) 10 ML IV SCH ×12 (00:34→21:36)
[2022-11-10 05:09] LABS: BASOPHILS % (AUTO) 0.8 % (0.2-1.0); HEMATOCRIT 34.3 % (42.0-54.0); LYMPHOCYTES # (AUTO) 0.8 X10^3/uL (1.3-2.9); LYMPHOCYTES % (AUTO) 18.2 % (21.0-51.0); MEAN CORPUSCULAR HEMOGLOBIN 35.4 pg (27.0-34.0); MEAN PLATELET VOLUME 6.3 fL (7.4-11.0); MONOCYTES # (AUTO) 0.6 x10^3/uL (0.3-0.8); NEUTROPHILS # (AUTO) 2.8 x10^3/uL (2.2-4.8); RED CELL DISTRIBUTION WIDTH 15.6 % (11.6-16.5); WHITE BLOOD COUNT 4.2 X10^3/uL (3.6-10.0)
[2022-11-10 05:25] LABS: ALANINE AMINOTRANSFERASE 70 Units/L (12-78); ALBUMIN 3.3 g/dL (3.4-5.0); ALKALINE PHOSPHATASE 57 Units/L (46-116); ASPARTATE AMINO TRANSFERASE 43 Units/L (15-37); BLOOD UREA NITROGEN 5 mg/dL (7-18); CARBON DIOXIDE 23.7 mmol/L (21-32); CHLORIDE 96 mmol/L (98-107); COR CA(FOR HYPOALB) 8.6 mg/dL (8.5-10.1); CREATININE 0.67 mg/dL (0.70-1.30); MAGNESIUM 1.9 mg/dL (2.0-2.9); SODIUM 129 mmol/L (136-145); TOTAL PROTEIN 6.5 g/dL (6.4-8.2); eGFR NON BLACK RACES > 60 (>60)
[2022-11-10] MEDS: PHENOBARBITAL SODIUM INJ 65 MG VIAL IM SCH ×3 (05:32→21:25)
[2022-11-10 06:02] LABS: AMYLASE 125 Units/L (25-115)
[2022-11-10 06:03] LABS: LIPASE 1473 Units/L (73-393)
[2022-11-10] MEDS: NYSTATIN CREAM TOP SCH ×2 (09:06→21:39)
[2022-11-10] MEDS: COLACE CAP 100 MG PO SCH (21:23)
[2022-11-10] MEDS: MILK OF MAGNESIA PO SCH (21:24)
[2022-11-11 05:09] LABS: BASOPHILS % (AUTO) 0.9 % (0.2-1.0); EOSINOPHILS % (AUTO) 0.8 % (0.9-2.9); HEMATOCRIT 35.2 % (42.0-54.0); HEMOGLOBIN 12.2 g/dL (13.5-18.0); LYMPHOCYTES # (AUTO) 0.7 X10^3/uL (1.3-2.9); LYMPHOCYTES % (AUTO) 14.5 % (21.0-51.0); MEAN CORPUSCULAR HEMOGLOBIN 35.1 pg (27.0-34.0); MEAN CORPUSCULAR HGB CONC 34.6 g/dL (33.0-35.0); MEAN CORPUSCULAR VOLUME 101.5 fL (80.0-100.0); MEAN PLATELET VOLUME 6.5 fL (7.4-11.0); MONOCYTES # (AUTO) 0.7 x10^3/uL (0.3-0.8); MONOCYTES % (AUTO) 14.4 % (0.0-13.0); NEUTROPHILS # (AUTO) 3.5 x10^3/uL (2.2-4.8); NEUTROPHILS % (AUTO) 69.4 % (42.0-75.0); RED BLOOD COUNT 3.47 X10^6/uL (4.7-6.0); RED CELL DISTRIBUTION WIDTH 15.7 % (11.6-16.5)
[2022-11-11 05:27] LABS: ALANINE AMINOTRANSFERASE 68 Units/L (12-78); ALBUMIN 3.2 g/dL (3.4-5.0); ALKALINE PHOSPHATASE 73 Units/L (46-116); AMYLASE 119 Units/L (25-115); ASPARTATE AMINO TRANSFERASE 38 Units/L (15-37); BLOOD UREA NITROGEN 5 mg/dL (7-18); CARBON DIOXIDE 24.3 mmol/L (21-32); CHLORIDE 97 mmol/L (98-107); COR CA(FOR HYPOALB) 8.6 mg/dL (8.5-10.1); LIPASE 1219 Units/L (73-393); MAGNESIUM 1.9 mg/dL (2.0-2.9); SODIUM 129 mmol/L (136-145); TOTAL PROTEIN 6.5 g/dL (6.4-8.2); eGFR NON BLACK RACES > 60 (>60)
[2022-11-11] MEDS: PHENOBARBITAL SODIUM INJ 65 MG VIAL IM SCH ×3 (06:20→21:07)
[2022-11-11] MEDS: NYSTATIN CREAM TOP SCH ×2 (08:23→21:06)
[2022-11-11] MEDS: NS + KCL 20 MEQ/L 1,000 ML with MAGNESIUM SULFATE 50% INJ VIAL 1 G, MVI INJ (ADULT) 10 ML IV SCH ×3 (08:24)
[2022-11-11] MEDS ORDERED: SODIUM CHL HYPERTONIC ** 3% ** 500 ML IV ONE (10:00)
[2022-11-11] MEDS: DIFLUCAN PO SCH (10:52)
[2022-11-11] MEDS: MAGNESIUM SULFATE 1 GRAM/100 mL PREMIX 1 G/100 ML BAG IV PRN ×2 (10:55→13:24)
[2022-11-11] MEDS: COLACE CAP 100 MG PO SCH (21:06)
[2022-11-11] MEDS: MILK OF MAGNESIA PO SCH ×2 (21:06→21:11)
[2022-11-12] MEDS ORDERED: TYLENOL 325 MG TAB PO ONE (02:54)
[2022-11-12] MEDS: TYLENOL 325 MG TAB PO PRN ×2 (02:59→17:22)
--- NOTE | 2022-11-12 03:34 | EKG ---
Test Reason : Tachycardia Blood Pressure : */* mmHG Vent. Rate : 157 BPM Atrial Rate : 157 BPM P-R Int : 136 ms QRS Dur : 66 ms QT Int : 294 ms P-R-T Axes : 32 27 40 degrees QTc Int : 475 ms Sinus tachycardia Otherwise normal ECG No previous ECGs available Confirmed by Anam Lee ([id number]) on 11/13/2022 8:52:15 AM Referred By: Confirmed By: Anam Lee
[2022-11-12 03:36] LABS: BASOPHILS # (AUTO) 0.1 X10^3/uL (0.0-0.1); BASOPHILS % (AUTO) 0.9 % (0.2-1.0); HEMATOCRIT 37.8 % (42.0-54.0); HEMOGLOBIN 13.1 g/dL (13.5-18.0); LYMPHOCYTES # (AUTO) 0.2 X10^3/uL (1.3-2.9); LYMPHOCYTES % (AUTO) 2.2 % (21.0-51.0); MEAN CORPUSCULAR HGB CONC 34.6 g/dL (33.0-35.0); MEAN CORPUSCULAR VOLUME 101.3 fL (80.0-100.0); MEAN PLATELET VOLUME 6.6 fL (7.4-11.0); MONOCYTES # (AUTO) 0.1 x10^3/uL (0.3-0.8); MONOCYTES % (AUTO) 0.7 % (0.0-13.0); NEUTROPHILS % (AUTO) 96.2 % (42.0-75.0); RED BLOOD COUNT 3.73 X10^6/uL (4.7-6.0); RED CELL DISTRIBUTION WIDTH 15.9 % (11.6-16.5); WHITE BLOOD COUNT 7.3 X10^3/uL (3.6-10.0)
[2022-11-12 03:44] LABS: ALANINE AMINOTRANSFERASE 70 Units/L (12-78); ALBUMIN 3.6 g/dL (3.4-5.0); ALKALINE PHOSPHATASE 82 Units/L (46-116); ASPARTATE AMINO TRANSFERASE 38 Units/L (15-37); BLOOD UREA NITROGEN 10 mg/dL (7-18); CALCIUM 8.4 mg/dL (8.5-10.1); CARBON DIOXIDE 21.9 mmol/L (21-32); CHLORIDE 94 mmol/L (98-107); COR NA(FOR HYPERGLY) 127 mmol/L (136-145); CREATININE 0.94 mg/dL (0.70-1.30); MAGNESIUM 1.2 mg/dL (2.0-2.9); SODIUM 126 mmol/L (136-145); TOTAL PROTEIN 7.2 g/dL (6.4-8.2); eGFR NON BLACK RACES > 60 (>60)
[2022-11-12 03:51] LABS: BILIRUBIN,URINE NEGATIVE (NEGATIVE); BLOOD/HEMOGLOBIN,URINE NEGATIVE (NEGATIVE); GLUCOSE, URINE NEGATIVE (NEGATIVE); KETONES,URINE NEGATIVE (NEGATIVE); LEUKOCYTE ESTERASE ,URINE NEGATIVE (NEGATIVE); NITRITES,URINE NEGATIVE (NEGATIVE); PROTEIN,URINE NEGATIVE (NEGATIVE); UROBILINOGEN,URINE NORMAL (NORMAL)
[2022-11-12 03:52] LABS: APPEARANCE,URINE CLEAR (CLEAR); COLOR,URINE YELLOW (YELLOW)
[2022-11-12 04:02] LABS: BAND NEUTROPHILS % 6 % (0-10)
[2022-11-12 04:03] LABS: PLATELET MORPHOLOGY COMMENT NORMAL (NORMAL)
[2022-11-12] MEDS ORDERED: PHARMACY CONSULT - VANCOMYCIN XX SCH (04:24)
[2022-11-12] MEDS: PHENOBARBITAL SODIUM INJ 65 MG VIAL IM SCH ×4 (05:11→22:03)
[2022-11-12] MEDS ORDERED: VANCOMYCIN IV *PREMIX 1.5 G/300 ML BAG 1.5 G/300 ML PIGGYBACK IV ONE (05:30)
[2022-11-12 05:57] LABS: AMYLASE 122 Units/L (25-115); LIPASE 874 Units/L (73-393)
[2022-11-12] MEDS: MAGNESIUM SULFATE 1 GRAM/100 mL PREMIX 1 G/100 ML BAG IV PRN ×3 (07:32→17:29)
[2022-11-12] MEDS ORDERED: NS 100 ML IV 100 ML ONE (07:35)
--- NOTE | 2022-11-12 08:23 | CT ---
HISTORYFEVER, TACHYCARDIA, NASAL CONGESTIONSTUDYSINUS W/O CONCOMPARISONHead CT 11/07/2022TECHNIQUEMultiple CT axial images of the paranasal sinuses were obtained without IV contrast. Coronal and sagittal reformats were reconstructed. Dose reduction techniques included Automated Exposure Control (AEC) and adjustment of mA and kV.FINDINGSThere is no fluid in the sinuses to suggest acute sinusitis. No significant mucosal thickening or bony wall thickening to suggest chronic sinusitis. No mastoid effusion.Nasal cavity is widely patent without mass or significant polyp. Bilateral lukasz bullosa are present in paradoxical turns of the middle turbinates. Nasal septum is deviated slightly to the left side.The orbital goncalves are intact with no fracture. Globes and orbital contents appear normal.Many of the teeth have been extracted.IMPRESSION1. No significant abnormalityElectronically signed by: Ed Oliver (Nov 12, 2022 08:21:40)
[2022-11-12] MEDS ORDERED: NORCO 10/325 TAB PO PRN (08:29)
--- NOTE | 2022-11-12 08:37 | RAD ---
HISTORYFEVER, TACHYCARDIASTUDYCHEST, 1 [id number]/05/2022.TECHNIQUEAP view of the chestFINDINGSThe cardiac and mediastinal contours are within normal limits. The lungs are clear without focal consolidation or segmental collapse. No pleural effusion or pneumothorax.IMPRESSIONNo acute pulmonary process.Electronically signed by: Domingo Gill (Nov 12, 2022 08:35:18)
[2022-11-12] MEDS: ZOSYN VIAL 4.5 GRAMS 4.5 G in NS 100 ML IV 100 ML IV SCH ×3 (08:59→22:04)
[2022-11-12] MEDS: DIFLUCAN PO SCH (09:00)
[2022-11-12] MEDS ORDERED: COZAAR PO SCH (09:00)
[2022-11-12] MEDS: LOPRESSOR TAB 25 MG PO SCH ×2 (09:00→22:05)
[2022-11-12] MEDS: NYSTATIN CREAM TOP SCH ×2 (10:00→22:05)
[2022-11-12] MEDS: PriLOSEC PO SCH (10:00)
--- NOTE | 2022-11-12 10:01 | PCM.PROG ---
Progress Note - Progress Note for Day of Date of Exam: 11/12/22 - Subjective Subjective: IS CURRENTLY BEING TREATED FOR PANCREATITIS, HYPONATREMIA, HYPOMAGNESEMIA, HYPOKALEMIS, AND AMS. NURSING STAFF REPORTS THAT PATIENT SPIKED A TEMP OF 103.7 AND HEARTRATE INCREASED TO THE 150s AT APPROXIMATELY 02:50 THIS MORNING. TODAY, HE IS ALERT AND ORIENTED, LYING IN BED ON MORNING ROUNDS. HE COMPLAINS OF NASAL CONGESTION, BUT DENIES OTHER COMPLAINTS. ON EXAMINATION, HE CONTINUES TO BE TACHYCARDIC WITH HR IN THE 120s. RHYTHM IS REGULAR. BILATERAL LUNGS ARE CLEAR TO AUSCULTATION. ABDOMEN IS ROUND, SOFT, AND NON-TENDER WITH NORMAL BOWEL SOUNDS NOTED IN ALL QUADRANTS. NO UPPER OR LOWER EXTREMITY EDEMA NOTED. HIS VITALS THIS MORNING ARE: 98.0-124-18-98%-106/67. LABS WERE OBTAINED. WBC 7.3, RBC 3.73, HGB 13.1, HCT 37.8, SODIUM 126, POTASSIUM 4.8, CHLORIDE 94, BUN 10, CREATININE 0.94, GLUCOSE 121, CALCIUM 8.4, MAGNESIUM 1.2, AST 38, ALT 70, ALK PHOS 82, TOTAL PROTEIN 7.2, ALBUMIN 3.6, AMYLASE 122, LIPASE 874. URINALYSIS WAS REPEATED AND IS UNREMARKABLE. COVID, INFLUENZA, AND RSV NEGATIVE. BLOOD CULTURES WERE SET UP. A CHEST XRAY WAS OBTAINED AND IS NEGATIVE FOR ACUTE ABNORMALITY. SINUS CT WAS OBTAINED AND REVEALED: NO SIGNIFICANT ABNORAMLITY. HE IS CURRENTLY RECEIVING HYPERTONIC SALINE, VANCOMYCIN 1G IF BID, ZOSYN 4.5G IV TID, THE POTASSIUM AND MAGNESIUM PROTOCOLS, PHENOBARBITAL 32.5MG IM TID, VALIUM 5MG IM Q8H PRN. COLACE 200MG PO HX, MILK OF MAGNESIA 30ML PO HS, DIFLUCAN 200MG PO DAILY, AND HIS HOME MEDICATIONS WERE RESUMED. WE WILL DISCONTINUE THE HYPERTONIC SALINE AND RESTART NORMAL SALINE AT 75 ML/HR. OTHERWISE, WE PLAN TO FOLLOW-UP WITH AM LABS AND CONTINUE TO MONITOR. TIME SPENT ON CLINICAL ASSESSMENT, REVIWING LABS AND IMAGING, DECISION MAKING, AND DOCUMENTATION GREATER THAN 45 MINUTES. - Past Medical Family Social History Past Med/Fam/Surg Hx: No changes since H&P Allergies: Allergies codeine Allergy (Verified 04/04/22 11:28) - Review of Systems ROS: No change since H&P - Vital Signs and I&O's Vital Signs: Temperature 98.0 F Pulse Rate [Right Brachial] 124 Respiratory Rate 18 Blood Pressure [Right Arm] 106/67 O2 Sat by Pulse Oximetry 98 Intake and Output: Intake & Output 11/09/22 11/10/22 11/11/22 11/12/22 11:59 11:59 11:59 11:59 Intake Total 3355 / 3355 1999 2840 / 2840 1718 / 1718 Balance 3355 / 3355 1999 2840 / 2840 1718 / 1718 - Physical Exam Oriented: Normal Eyes: Normal Ear: Normal Nose: Normal Throat: Normal Respiratory: Normal Cardiovascular: Normal : Normal Auscultation: Bowel Sounds: Normal Palpation: Normal Tenderness: Normal Skin: Normal Musculoskeletal: Instability Psychiatric: Normal Mood Description: Calm Affect: Normal Speech Pattern: Appropriate - Laboratory and Diagnostics Result Diagrams: 11/12/22 03:05 11/12/22 03:05 Labs: Laboratory WBC 7.3 X10^3/uL (3.6-10.0) 11/12/22 03:05 RBC 3.73 X10^6/uL (4.7-6.0) L 11/12/22 03:05 Hgb 13.1 g/dL (13.5-18.0) L 11/12/22 03:05 Hct 37.8 % (42.0-54.0) L 11/12/22 03:05 MCV 101.3 fL (80.0-100.0) H 11/12/22 03:05 MCH 35.0 pg (27.0-34.0) H 11/12/22 03:05 MCHC 34.6 g/dL (33.0-35.0) 11/12/22 03:05 RDW 15.9 % (11.6-16.5) 11/12/22 03:05 Plt Count 228 X10^3/uL (150.0-450.0) 11/12/22 03:05 Plt Count Comment Adequate (ADEQUATE) 11/12/22 03:05 MPV 6.6 fL (7.4-11.0) L 11/12/22 03:05 Neut % (Auto) 96.2 % (42.0-75.0) H 11/12/22 03:05 Lymph % (Auto) 2.2 % (21.0-51.0) L 11/12/22 03:05 [place] % (Auto) 0.7 % (0.0-13.0) 11/12/22 03:05 Eos % (Auto) 0.0 % (0.9-2.9) L 11/12/22 03:05 Baso % (Auto) 0.9 % (0.2-1.0) 11/12/22 03:05 Neut # (Auto) 7.0 x10^3/uL (2.2-4.8) H 11/12/22 03:05 Lymph # (Auto) 0.2 X10^3/uL (1.3-2.9) L 11/12/22 03:05 [place] # (Auto) 0.1 x10^3/uL (0.3-0.8) L 11/12/22 03:05 Eos # (Auto) 0.0 x10^3/uL (0.0-0.2) 11/12/22 03:05 Baso # (Auto) 0.1 X10^3/uL (0.0-0.1) 11/12/22 03:05 Absolute Nucleated RBC 0.0 /100WBC 11/12/22 03:05 Total Counted 100 11/12/22 03:05 Neutrophils % (Manual) 89 % (39-76) H 11/12/22 03:05 Band Neutrophils % 6 % (0-10) 11/12/22 03:05 Lymphocytes % (Manual) 5 % (13-43) L 11/12/22 03:05 Plt Morphology Comment Normal (NORMAL) 11/12/22 03:05 RBC Morphology Abnormal (NORMAL) 11/12/22 03:05 Macrocytosis Slight A 11/12/22 03:05 Sodium 126 mmol/L (136-145) L 11/12/22 03:05 Corrected Sodium 127 mmol/L (136-145) L 11/12/22 03:05 Potassium 4.8 mmol/L (3.5-5.1) 11/12/22 03:05 Chloride 94 mmol/L (98-107) L 11/12/22 03:05 Carbon Dioxide 21.9 mmol/L (21-32) 11/12/22 03:05 BUN 10 mg/dL (7-18) 11/12/22 03:05 Creatinine 0.94 mg/dL (0.70-1.30) 11/12/22 03:05 Est GFR (MDRD) Af Amer > 60 (>60) 11/12/22 03:05 Est GFR (MDRD) Non-Af > 60 (>60) 11/12/22 03:05 Glucose 121 mg/dL (65-99) H 11/12/22 03:05 Lactic Acid 4.1 mmol/L (0.4-2.0) H 11/12/22 09:24 Calcium 8.4 mg/dL (8.5-10.1) L 11/12/22 03:05 Corrected Calcium TNP 11/12/22 03:05 Magnesium 1.2 mg/dL (2.0-2.9) L 11/12/22 03:05 Total Bilirubin 0.70 mg/dL (0.2-1.0) 11/12/22 03:05 AST 38 Units/L (15-37) H 11/12/22 03:05 ALT 70 Units/L (12-78) 11/12/22 03:05 Alkaline Phosphatase 82 Units/L (46-116) 11/12/22 03:05 Ammonia 13 umol/L (11-32) 11/07/22 12:05 Total Protein 7.2 g/dL (6.4-8.2) 11/12/22 03:05 Albumin 3.6 g/dL (3.4-5.0) 11/12/22 03:05 Globulin 3.6 g/dL (2.5-4.5) 11/12/22 03:05 Albumin/Globulin Ratio 1.0 Ratio (1.1-2.1) L 11/12/22 03:05 Amylase 122 Units/L (25-115) H 11/12/22 03:05 Lipase 874 Units/L (73-393) H 11/12/22 03:05 Specimen Type Clean catch urine 11/12/22 03:38 Urine Color Yellow (YELLOW) 11/12/22 03:38 Urine Appearance Clear (CLEAR) 11/12/22 03:38 Urine pH 6.0 (5.0 - 8.0) 11/12/22 03:38 Ur Specific [place] 1.015 (1.000-1.030) 11/12/22 03:38 Urine Protein Negative (NEGATIVE) 11/12/22 03:38 Urine Glucose (UA) Negative (NEGATIVE) 11/12/22 03:38 Urine Ketones Negative (NEGATIVE) 11/12/22 03:38 Urine Blood Negative (NEGATIVE) 11/12/22 03:38 Urine Nitrite Negative (NEGATIVE) 11/12/22 03:38 Urine Bilirubin Negative (NEGATIVE) 11/12/22 03:38 Urine Urobilinogen Normal (NORMAL) 11/12/22 03:38 Ur Leukocyte Esterase Negative (NEGATIVE) 11/12/22 03:38 Urine RBC None seen /HPF (0-3) 11/07/22 17:45 Urine WBC None seen /HPF (0-5) 11/07/22 17:45 Ur Squamous Epith Cells Negative /HPF (NEGATIVE) 11/07/22 17:45 Urine Bacteria Trace /HPF (NEGATIVE) 11/07/22 17:45 Ur Culture Indicated? No/not indicated 11/07/22 17:45 Urine Opiates Screen Negative (NEG=<300) 11/07/22 17:45 Urine Methadone Screen Negative (NEG=<300) 11/07/22 17:45 Ur Barbiturates Screen Negative (NEG=<200) 11/07/22 17:45 Ur Phencyclidine Scrn Negative (NEG=<25) 11/07/22 17:45 Ur Amphetamines Screen Negative (NEG=<1000) 11/07/22 17:45 U Benzodiazepines Scrn Negative (NEG=<200) 11/07/22 17:45 Urine Cocaine Screen Negative (NEG=<300) 11/07/22 17:45 U Marijuana (THC) Screen Negative (NEG=<50) 11/07/22 17:45 SARS-CoV-2 (PCR) Negative (NEGATIVE) 11/12/22 03:10 Influenza Type A (PCR) Negative (NEGATIVE) 11/12/22 03:10 Influenza Type B (PCR) Negative (NEGATIVE) 11/12/22 03:10 RSV (PCR) Negative (NEGATIVE) 11/12/22 03:10 - Plan (1) Pancreatitis, alcoholic, acute Status: Acute Qualifiers: Acute pancreatitis complication: unspecified Qualified Code(s): K85.20 - Alcohol induced acute pancreatitis without necrosis or infection Plan: NORMAL SALINE AT 75 ML/HR, VANCOMYCIN 1G IV BID, ZOSYN 4.5G IV TID, THE POTASSIUM AND MAGNESIUM PROTOCOLS, PHENOBARBITAL 32.5MG IM TID, VALIUM 5MG IM Q8H PRN. COLACE 200MG PO HX, MILK OF MAGNESIA 30ML PO HS, DIFLUCAN 200MG PO DAILY, AND HIS HOME MEDICATIONS WERE RESUMED. (2) Hyponatremia Status: Acute (3) Hypomagnesemia Status: Acute (4) Hypokalemia Status: Acute (5) AMS (altered mental status) Status: Acute Qualifiers: Altered mental status type: unspecified Qualified Code(s): R41.82 - Altered mental status, unspecified (6) Falls frequently Status: Acute (7) Alcoholism Status: Chronic (8) Hypertension Status: Chronic Qualifiers: Hypertension type: primary hypertension Qualified Code(s): I10 - Essential (primary) hypertension
[2022-11-12] MEDS: NS 1,000 ML IV 1,000 ML IV SCH (11:30)
[2022-11-12] MEDS: VANCOMYCIN IV *PREMIX 1 G/200 ML BAG 1 G/200 ML PIGGYBACK IV SCH (21:59)
[2022-11-12] MEDS: COLACE CAP 100 MG PO SCH (22:03)
[2022-11-12] MEDS: MILK OF MAGNESIA PO SCH (22:04)
[2022-11-13] MEDS: NS 1,000 ML IV 1,000 ML IV SCH
[2022-11-13 05:35] LABS: BASOPHILS # (AUTO) 0.1 X10^3/uL (0.0-0.1); BASOPHILS % (AUTO) 1.7 % (0.2-1.0); EOSINOPHILS % (AUTO) 0.4 % (0.9-2.9); HEMATOCRIT 35.3 % (42.0-54.0); LYMPHOCYTES # (AUTO) 0.1 X10^3/uL (1.3-2.9); LYMPHOCYTES % (AUTO) 2.4 % (21.0-51.0); MEAN CORPUSCULAR HEMOGLOBIN 34.8 pg (27.0-34.0); MEAN CORPUSCULAR HGB CONC 34.2 g/dL (33.0-35.0); MEAN CORPUSCULAR VOLUME 101.9 fL (80.0-100.0); MONOCYTES # (AUTO) 0.2 x10^3/uL (0.3-0.8); MONOCYTES % (AUTO) 3.9 % (0.0-13.0); NEUTROPHILS # (AUTO) 5.5 x10^3/uL (2.2-4.8); NEUTROPHILS % (AUTO) 91.6 % (42.0-75.0); RED BLOOD COUNT 3.46 X10^6/uL (4.7-6.0); RED CELL DISTRIBUTION WIDTH 15.7 % (11.6-16.5)
[2022-11-13 05:46] LABS: ALANINE AMINOTRANSFERASE 102 Units/L (12-78); ALBUMIN 2.9 g/dL (3.4-5.0); ALKALINE PHOSPHATASE 62 Units/L (46-116); ASPARTATE AMINO TRANSFERASE 63 Units/L (15-37); BLOOD UREA NITROGEN 20 mg/dL (7-18); CARBON DIOXIDE 22.7 mmol/L (21-32); CHLORIDE 93 mmol/L (98-107); COR CA(FOR HYPOALB) 8.9 mg/dL (8.5-10.1); CREATININE 1.07 mg/dL (0.70-1.30); MAGNESIUM 2.1 mg/dL (2.0-2.9); SODIUM 126 mmol/L (136-145); TOTAL PROTEIN 6.2 g/dL (6.4-8.2); eGFR NON BLACK RACES > 60 (>60)
[2022-11-13] MEDS: ZOSYN VIAL 4.5 GRAMS 4.5 G in NS 100 ML IV 100 ML IV SCH (05:51)
[2022-11-13] MEDS: PHENOBARBITAL SODIUM INJ 65 MG VIAL IM SCH (05:52)
[2022-11-13 05:59] LABS: BAND NEUTROPHILS % 9 % (0-10); PLATELET MORPHOLOGY COMMENT NORMAL (NORMAL)
[2022-11-13] MEDS: DIFLUCAN PO SCH (08:53)
[2022-11-13] MEDS: NYSTATIN CREAM TOP SCH (08:53)
[2022-11-13] MEDS: LOPRESSOR TAB 25 MG PO SCH (08:53)
[2022-11-13] MEDS: PriLOSEC PO SCH (08:53)
[2022-11-13 09:27] VITALS: BP 130/67
[2022-11-13] MEDS: VANCOMYCIN IV *PREMIX 1 G/200 ML BAG 1 G/200 ML PIGGYBACK IV SCH (10:20)
[2022-11-13] MEDS ORDERED: PHARMACY COMMENT IV ONE (21:30)
== END 2022-11-13 10:55 | disposition home or self-care (01) | DRG 439 ==
LOC: MED/SURG → OBSVTOIN 11:28
PROVIDERS: ADMIT Internal Medicine; ATTEND Internal Medicine
DX: F41.8 Other specified anxiety disorders; R41.82 Altered mental status, unspecified; E87.1 Hypo-osmolality and hyponatremia; K85.20 Alcohol induced acute pancreatitis without necrosis or infection; K21.9 Gastro-esophageal reflux disease without esophagitis; R29.6 Repeated falls; E83.42 Hypomagnesemia; I25.10 Atherosclerotic heart disease of native coronary artery without angina pectoris; R19.7 Diarrhea, unspecified; E87.6 Hypokalemia; B95.62 Methicillin resistant Staphylococcus aureus infection as the cause of diseases classified elsewhere; Z20.822 Contact with and (suspected) exposure to COVID-19; R26.89 Other abnormalities of gait and mobility; F10.20 Alcohol dependence, uncomplicated; I10 Essential (primary) hypertension; R50.9 Fever, unspecified; R41.841 Cognitive communication deficit